=== PATIENT | female | born 1950 | race African-American/Black ===

== ENCOUNTER 2017-06-12 04:30 | Observation (INO) | payer MEDICARE, MEDICAID ==
[2017-06-12] MEDS ORDERED: methylPREDNISolone 125 MG* 2 ML VIAL IV ONE (04:44)
[2017-06-12] MEDS ORDERED: diPHENhydraMINE IV* 50 MG/ML 1 ml VIAL (BENADRYL) IV ONE (04:45)
[2017-06-12] MEDS ORDERED: Famotidine IV* 10 MG/ML 2 ML (20 mg) IV SLOW PU ONE (04:45)
[2017-06-12] MEDS ORDERED: EPINEPHrine AMP 1 MG/ML SUBCUT ONE (04:48)
[2017-06-12] MEDS ORDERED: EPINEPHRINE 1 MG/ML 1 ML VIAL ONE (04:54)
[2017-06-12] MEDS ORDERED: Famotidine IV* 10 MG/ML 2 ML (20 mg) ONE (04:54)
[2017-06-12] MEDS ORDERED: methylPREDNISolone 125 MG* 2 ML VIAL ONE (04:54)
[2017-06-12] MEDS ORDERED: diPHENhydraMINE IV* 50 MG/ML 1 ml VIAL (BENADRYL) ONE (04:54)
[2017-06-12 06:37] LABS: ABS Basophils 0 10^3/ul (0-0.2); ABS Eosinophils 0.1 10^3/ul (0-0.6); ABS Lymphocytes 3.1 10^3/ul (1.0-4.8); ABS Monocytes 0.5 10^3/ul (0-0.8); ABS Nucleated RBC 0 10^3/ul; Eosinophil % 1.6 % (0-6); Hematocrit 39 % (35-47); Hemoglobin 12.9 g/dl (12.0-16.0); Lymphocyte % 35.4 % (25-47); Mean Corpuscular HGB Conc 33 g/dl (31-36); Mean Corpuscular Hemoglobin 29 pg (27-31); Mean Corpuscular Volume 87 fL (80-97); Mean Platelet Volume 10.2 um3 (7.4-10.4); Nucleated Red Blood Cells % 0; Platelet Count 275 10^3/ul (150-450); Red Blood Count 4.52 10^6/ul (4.0-5.4); Red Cell Distribution Width 14 % (10.5-15); White Blood Count 8.9 10^3/ul (3.5-10.8)
[2017-06-12 06:48] LABS: INR 0.94 (0.77-1.02)
[2017-06-12 06:53] LABS: EGFR Non-African American 48.2 (>60)
[2017-06-12] MEDS ORDERED: Dextrose 50% Syringe 50 ML* 25 GM/50 ML SYRINGE IV PUSH PRN (09:53)
[2017-06-12] MEDS ORDERED: diPHENhydraMINE PO* 50 MG PO PRN (10:13)
[2017-06-12] MEDS ORDERED: Famotidine TAB* 20 MG PO ONE (10:14)
[2017-06-12] MEDS: Atorvastatin* 10 MG TAB PO SCH (10:53)
[2017-06-12] MEDS: Atenolol TAB* 50 MG PO SCH (10:53)
--- NOTE | 2017-06-12 12:04 | CONS ---
CONSULTATION REPORT: DATE OF CONSULTATION: 06/12/17 HISTORY OF PRESENT ILLNESS: This pleasant 66-year-old female with no prior history of angioedema, presented with sudden onset of increasing swelling of the floor of her mouth and tongue as well as her lower lip. Her story is that she had had a similar episode about 3 days ago, but much milder. She was at that time eating pumpkin seeds and no other sort of nuts, fruit or any other food that she had not been familiar with. She had also started glipizide for her diabetes. She denies any kind of stridor or sniff at this time. PHYSICAL EXAM: On examination, she did have some moderate amount of floor of mouth swelling. She had not had any dental caries. This apparently had reduced in size since institution of medication including H2 blockers, steroids , and adrenaline. A flexible endoscopy was performed through the left naris. There was some tongue base swelling, but there was no evidence of epiglottic swelling. Larynx itself was otherwise clear. IMPRESSION: Clinical impression: The patient with what sounds like new onset of angioedema, possibly related to glipizide, although it is uncommon. RECOMMENDATIONS: I think the patient should be admitted. I think at discharge the patient should probably have referral to Dr. Mason Terry for evaluation of angioedema. [id number]/[facility] #: [id number] [facility]ITALStefany
[2017-06-12] MEDS ORDERED: Acetaminophen TAB* 325 MG PO PRN (12:31)
[2017-06-12] MEDS ORDERED: Ketorolac INJ* 15 MG/ML 1 ML VIAL IV PUSH ONE (12:35)
[2017-06-12] MEDS: Insulin LISPRO* 1 UNITS UNIT SUBCUT SCH ×3 (12:37→23:10)
[2017-06-12] MEDS ORDERED: Magnesium Sulfate 2 GM IV* 2 GM/50 ML BAG IVPB ONE (13:19)
[2017-06-12] MEDS ORDERED: Potassium Chloride LIQUID* 20 MEQ PACKET PO ONE ×2 (14:00→16:00)
[2017-06-12] MEDS: Heparin VIAL(*) 5000 UNITS/ML VIAL (FIVE THOUSAND) SUBCUT SCH ×2 (14:08→23:11)
--- NOTE | 2017-06-12 14:56 | HP ---
Amended report to enter co-signature physician. CC: Dr. Rodgers* HISTORY AND PHYSICAL: DATE OF ADMISSION: 06/12/17 PROVIDER: Nazia Saldaña NP ATTENDING PHYSICIAN: Dr. Ware* (report dictated by Nazia Saldaña NP) PRIMARY CARE PROVIDER: Dr. Rodgers. CHIEF COMPLAINT: Acute facial and tongue swelling. HISTORY OF PRESENT ILLNESS: Ms. Terry is a 66-year-old female with a past medical history of fsa-ksgwnpg-ogxbizblk type 2 diabetes, hypertension, hyperlipidemia, who presented to the emergency department around 4 a.m. this morning with complaint of acute facial and tongue swelling. In the emergency department, she was given 0.3 mg of subcu epinephrine, Solu-Medrol 125 mg IV, and Pepcid for treatment of angioedema. The patient was seen in consultation by ENT, Dr. Davis, who performed a flexible endoscopy to the left naris and noted some tongue-based swelling with no evidence of epiglottic swelling and the larynx itself was otherwise clear. His clinical impression was new onset of angioedema. Per the patient, on my evaluation, she reports she stared a new medication glipizide approximately 2 weeks ago. She reports initially her symptoms started approximately 6 days ago on Wednesday when she developed left tonsillar pain, reporting it felt like a left-sided sore throat with rhinorrhea and a cough, a feeling like she was coming down with a cold. She reports feeling feverish intermittently on Wednesday and Wednesday; however, she did not take her temperature at home. She reports that her "fever" broke on Wednesday evening. She reported it felt like she had a cold with a left-sided sore throat, which did get better throughout the week. She then reports waking up in the middle of the night around 3 a.m. with difficulty swallowing, reporting that she was unable to swallow saliva and she was drooling saliva out of her mouth. She denied feeling short of breath, but her biggest complaint was inability to swallow with a tight sensation in her throat. She does report that she was eating pumpkin seeds last evening as well as she did drink a new herbal tea yesterday which she cannot remember the name of. She denies ever having any symptoms like this before in the past. She denies any allergies. Denies ever having any allergy testing. Currently, she reports that she feels much better since admission to the emergency department. She reports now she can swallow without difficulty; however, she does report a continued mild painful sensation in her left tonsillar area. She also continues to report that the left-side of her face has mild facial swelling, but again is much improved since admission. She denies chest pain, shortness of breath, or wheezing. She is currently now drinking fluids at the bedside stating it feels comfortable and without any difficulty. PAST MEDICAL HISTORY: 1. Yng-omjhlwq-pmmfogpdr type 2 diabetes. 2. Hypertension. 3. Hyperlipidemia. ALLERGIES: No known allergies. REVIEW OF SYSTEMS: A 14-point review of systems was performed, all the pertinent positives and negatives are mentioned in the history of present illness, otherwise negative. PHYSICAL EXAMINATION GENERAL APPEARANCE: A well-developed, 66-year-old female, sitting up in bed, alert and oriented x3, in no acute distress. Both sisters and daughter are at the bedside. VITAL SIGNS: Temperature 98.7, heart rate 75, respirations 16, O2 sat 99% on room air, and blood pressure 139/66. HEENT: Head is normocephalic and atraumatic. Pupils equal and reactive to light. Oropharynx: Tongue appears mildly edematous in the posterior aspect of her tongue, uvula is midline. Her soft and hard palate of her mouth appears to be without any edema. There is mild left facial edema noted spreading to the left lateral side of her neck. Left submandibular lymph node appears to be mildly tender, enlarged as well as her left cervical chain. Her lips appear to have no edema noted. The patient's speech is fluent and clear. Able to swallow normally without difficulty. LUNGS: Clear to auscultation bilaterally. Good aeration throughout. No wheezing, rhonchi, or rales noted. CARDIAC: S1 and S2. Regular rate and rhythm. No murmurs, rubs, or gallops appreciated. No lower extremity edema noted. ABDOMEN: Soft, nontender, and nondistended. Normal bowel sounds throughout. EXTREMITIES: No clubbing, cyanosis, or edema. NEURO: Alert and oriented x3. Cranial nerves II through XII grossly intact. Steady gait noted, no focal deficits noted. DIAGNOSTIC STUDIES/LAB DATA: WBC is 8.9, RBC 4.52, Hgb 12.9, Hct 39, MCV 87, MCH 29, MCHC 33, platelet count 275. INR 0.94. Sodium 142, potassium 3.1, chloride 106, carbon dioxide 28, anion gap 8, BUN 9, creatinine 1.13, glucose 120, calcium 8.8, magnesium 1.8. Total bilirubin 0.50, AST 17, ALT 24, alkaline phosphatase 79. Troponin 0.01. Total protein 6.9 and albumin 4.0. EKG: Normal sinus rhythm with a rate of 83, no acute ST changes noted. No prior EKG to compare. ASSESSMENT AND PLAN: Ms. Terry is a 66-year-old female with a past medical history of rjx-yumgyaz-zyqzcopvz type 2 diabetes, hypertension, hyperlipidemia, who presents today with acute onset of left facial, tongue, and neck swelling, suspected to be angioedema. 1. Angioedema. The patient has greatly improved since arrival to the emergency department. As stated in the HPI, she was treated with IV Solu-Medrol , epinephrine, Pepcid, and Benadryl. She continues to have some discomfort in her left lateral neck near her tonsil area, is eating and drinking well without any difficulties. Plan: Continue to monitor. She may be able to go home this evening. She will be continued on scheduled Benadryl, Pepcid. Unclear what the triggering factor was - possible Glipizide (she was on this for 7-14 days prior, new herbal tea, or pumpkins seeds?). On discharge, she will be discharged with an EpiPen as well as referral to Dr. Terry, emergency vehicle technician, for further workup. 2. Electrolytes abnormality. Give replacement for potassium and magnesium now. If she stays overnight, we will recheck labs in the morning. 3. Hypertension. Controlled, continue atenolol. 4. Hyperlipidemia. Continue Lipitor. 5. Hyf-kndauyw-sbhsscjdr type 2 diabetes. Plan to hold glipizide, metformin, FSBGs a.c. and h.s. with lispro sliding scale. 6. DVT prophylaxis. Heparin subcu. HOSPITAL STATUS: Observation. TIME SPENT: Approximately 60 minutes was spent on this admission. This case was discussed with Dr. Ware, attending physician, who agrees with the plan of care. NAZIA SALDAÑA, WATER TECHNICIAN [id number]/[facility] #: [id number] [facility] SYSTEMStefany
[2017-06-12] MEDS: diPHENhydraMINE PO* 50 MG PO SCH ×2 (17:09→23:10)
--- NOTE | 2017-06-13 01:12 | ED ---
Thang Regan Nilda, scribed for Nydia Sloan MD on 06/12/17 at 0601 . Allergic Reaction/Systemic - HPI Summary HPI Summary: This patient is a 66 year old F presenting to [facility] accompanied by family with a chief complaint of waking up with acute facial and tongue swelling minutes ago. The patient rates the pain 6/10 in severity. Symptoms aggravated and alleviated by nothing. Patient denies pruritic rashes or hives. NKDA except for aversion to Tylenol (causes LOO). Pt notes she ate pumpkin seeds last night. She is unsure what caused the swelling. She states recent medication change, per triage note. - History of Current Complaint Chief Complaint: EDAllergicReaction Time Seen by Provider: 06/12/17 04:52 Hx Obtained From: Patient, Medical Records Onset/Duration: Sudden Onset, Started minutes ago, Still Present Timing: Constant Severity Currently: Moderate Pain Intensity: 6 Pain Scale Used: 0-10 Numeric Location: Discrete @ - face and tongue Character: Swelling, Pain Aggravating Factor(s): Nothing Alleviating Factor(s): Nothing Associated Signs And Symptoms: Positive: Other: - negative pruritic rashes/hives - Allergies/Home Medications Allergies/Adverse Reactions: Allergies Allergy/AdvReac Type Severity Reaction Status Date / Time No Known Allergies Allergy Verified 11/13/16 13:01 Home Medications: Home Medications Atenolol TAB* [Tenormin TAB* 50 MG] 50 mg PO DAILY 06/12/17 [History Confirmed 06/12/17] Atorvastatin* [Lipitor*] 5 mg PO DAILY 06/12/17 [History Confirmed 06/12/17] Metformin HCl [Metformin HCl ER] 500 mg PO BID 06/12/17 [History Confirmed 06/12] glipiZIDE [Glipizide ER] 2.5 mg PO DAILY 06/12/17 [History Confirmed 06/12/17] PMH/Surg Hx/FS Hx/Imm Hx Endocrine/Hematology History: Reports: Hx Diabetes Cardiovascular History: Reports: Hx Hypertension Respiratory History: Denies: Hx Asthma, Hx Chronic Obstructive Pulmonary Disease (COPD) Sensory History: Denies: Hx Legally Blind EENT History: Denies: Hx Deafness - Cancer History Hx Chemotherapy: No Hx Radiation Therapy: No - Immunization History Immunizations Up to Date: Yes Infectious Disease History: No Infectious Disease History: Denies: Traveled Outside the [place] in Last 30 Days - Social History Alcohol Use: None Substance Use Type: Reports: None Smoking Status (MU): Never Smoked Tobacco Review of Systems Negative: Shortness Of Breath Positive: Other - facial and tongue swelling; negative pruritic rashes or hives. All Other Systems Reviewed And Are Negative: Yes Physical Exam - Summary Physical Exam Summary: GENERAL: Patient is a well developed and nourished F who is lying comfortable in the stretcher. Patient is not in any acute respiratory distress. HEAD AND FACE: Tongue swollen, lips swollen. EYES: PERRLA, EOMI x 2. EARS: Hearing grossly intact. MOUTH: Uvula not visible. NECK: Supple, trachea is midline, no adenopathy, no JVD, no carotid bruit. CHEST: Symmetric, no tenderness at palpation LUNGS: Clear to auscultation bilaterally. No wheezing or crackles. CVS: Regular rate and rhythm, S1 and S2 present, no murmurs or gallops appreciated. ABDOMEN: Soft, non-tender. Bowel sounds are normal. No abdominal abnormal pulsations. EXTREMITIES: Full ROM in all major joints, no edema, no cyanosis or clubbing. NEURO: Alert and oriented x 3. No acute neurological deficits. Speech is normal and follows commands. SKIN: Dry and warm Triage Information Reviewed: Yes Vital Signs On Initial Exam: Initial Vitals Temp Pulse Resp BP Pulse Ox 98.6 F 81 16 188/87 97 06/12/17 04:32 06/12/17 04:32 06/12/17 04:32 06/12/17 04:32 06/12/17 04:32 Vital Signs Reviewed: Yes Diagnostics - Vital Signs Vital Signs Temp Pulse Resp BP Pulse Ox 06/12/17 05:00 104 23 99 06/12/17 04:44 87 18 201/98 99 06/12/17 04:42 89 99 06/12/17 04:32 98.6 F 81 16 188/87 97 - Laboratory Lab Results: Lab Results 06/12/17 06/12/17 06/12/17 Range/Units 04:41 04:41 04:41 WBC 8.9 (3.5-10.8) 10^3/ul RBC 4.52 (4.0-5.4) 10^6/ul Hgb 12.9 (12.0-16.0) g/dl Hct 39 (35-47) % MCV 87 (80-97) fL MCH 29 (27-31) pg MCHC 33 (31-36) g/dl RDW 14 (10.5-15) % Plt Count 275 (150-450) 10^3/ul MPV 10.2 (7.4-10.4) um3 Neut % (Auto) 56.6 (38-83) % Lymph % (Auto) 35.4 (25-47) % Morehouse % (Auto) 6.0 (0-7) % Eos % (Auto) 1.6 (0-6) % Baso % (Auto) 0.4 (0-2) % Absolute Neuts (auto) 5.0 (1.5-7.7) 10^3/ul Absolute Lymphs (auto) 3.1 (1.0-4.8) 10^3/ul Absolute Monos (auto) 0.5 (0-0.8) 10^3/ul Absolute Eos (auto) 0.1 (0-0.6) 10^3/ul Absolute Basos (auto) 0 (0-0.2) 10^3/ul Absolute Nucleated RBC 0 10^3/ul Nucleated RBC % 0 INR (Anticoag Therapy) 0.94 (0.77-1.02) APTT 30.2 (26.0-36.3) seconds Sodium 142 (139-145) mmol/L Potassium 3.1 L (3.5-5.0) mmol/L Chloride 106 (101-111) mmol/L Carbon Dioxide 28 (22-32) mmol/L Anion Gap 8 (2-11) mmol/L BUN 9 (6-24) mg/dL Creatinine 1.13 H (0.51-0.95) mg/dL Est GFR ( Amer) 62.0 (>60) Est GFR (Non-Af Amer) 48.2 (>60) BUN/Creatinine Ratio 8.0 (8-20) Glucose 120 H (70-100) mg/dL Calcium 8.8 (8.6-10.3) mg/dL Magnesium 1.8 L (1.9-2.7) mg/dL Total Bilirubin 0.50 (0.2-1.0) mg/dL AST 17 (13-39) U/L ALT 24 (7-52) U/L Alkaline Phosphatase 79 (34-104) U/L Troponin I 0.01 (<0.04) ng/mL Total Protein 6.9 (6.4-8.9) g/dL Albumin 4.0 (3.2-5.2) g/dL Globulin 2.9 (2-4) g/dL Albumin/Globulin Ratio 1.4 (1-3) Blood Type Antibody Screen 06/12/17 Range/Units 04:41 WBC (3.5-10.8) 10^3/ul RBC (4.0-5.4) 10^6/ul Hgb (12.0-16.0) g/dl Hct (35-47) % MCV (80-97) fL MCH (27-31) pg MCHC (31-36) g/dl RDW (10.5-15) % Plt Count (150-450) 10^3/ul MPV (7.4-10.4) um3 Neut % (Auto) (38-83) % Lymph % (Auto) (25-47) % Morehouse % (Auto) (0-7) % Eos % (Auto) (0-6) % Baso % (Auto) (0-2) % Absolute Neuts (auto) (1.5-7.7) 10^3/ul Absolute Lymphs (auto) (1.0-4.8) 10^3/ul Absolute Monos (auto) (0-0.8) 10^3/ul Absolute Eos (auto) (0-0.6) 10^3/ul Absolute Basos (auto) (0-0.2) 10^3/ul Absolute Nucleated RBC 10^3/ul Nucleated RBC % INR (Anticoag Therapy) (0.77-1.02) APTT (26.0-36.3) seconds Sodium (139-145) mmol/L Potassium (3.5-5.0) mmol/L Chloride (101-111) mmol/L Carbon Dioxide (22-32) mmol/L Anion Gap (2-11) mmol/L BUN (6-24) mg/dL Creatinine (0.51-0.95) mg/dL Est GFR ( Amer) (>60) Est GFR (Non-Af Amer) (>60) BUN/Creatinine Ratio (8-20) Glucose (70-100) mg/dL Calcium (8.6-10.3) mg/dL Magnesium (1.9-2.7) mg/dL Total Bilirubin (0.2-1.0) mg/dL AST (13-39) U/L ALT (7-52) U/L Alkaline Phosphatase (34-104) U/L Troponin I (<0.04) ng/mL Total Protein (6.4-8.9) g/dL Albumin (3.2-5.2) g/dL Globulin (2-4) g/dL Albumin/Globulin Ratio (1-3) Blood Type A Positive Antibody Screen Negative Result Diagrams: 06/12/17 04:41 06/12/17 04:41 Lab Statement: Any lab studies that have been ordered have been reviewed, and results considered in the medical decision making process. Allergic Reaction Course/Dx - Course Course Of Treatment: 66 year old female presenting to the ED with an acute onset of swelling of the lip and tongue and difficulty breathing. Patient was treated with epi, benadryl, steroid and famotidine for angioedema. Patient was seen and evaluated at the bedside by ENT. Patient reports feeling better but will be admitted for airway watch Assessment/Plan: [0540] Dr. oNlen (hospitalist) agrees to admit pt. - Diagnoses Differential Diagnosis/HQI/PQRI: Positive: Angioedema Provider Diagnoses: Angio-edema - Provider Notifications Discussed Care Of Patient With: Skyler Davis - ENT Time Discussed With Above Provider: 05:51 Instructed by Provider To: Will See In ED - agrees to scope. - Critical Care Time Critical Care Time: 30-74 min Discharge - Sign-Out/Discharge Documenting (check all that apply): Discharge - Discharge Plan Condition: Stable Disposition: ADMITTED TO [facility] - Billing Disposition and Condition Condition: STABLE Disposition: [facility] The documentation as recorded by the Thang batista Nilda accurately reflects the service I personally performed and the decisions made by , Nydia Sloan MD.
[2017-06-13] MEDS: diPHENhydraMINE PO* 50 MG PO SCH ×2 (05:12→12:27)
[2017-06-13] MEDS: Heparin VIAL(*) 5000 UNITS/ML VIAL (FIVE THOUSAND) SUBCUT SCH (05:13)
[2017-06-13 06:05] LABS: ABS Basophils 0 10^3/ul (0-0.2); ABS Eosinophils 0 10^3/ul (0-0.6); ABS Lymphocytes 2.9 10^3/ul (1.0-4.8); ABS Monocytes 1.4 10^3/ul (0-0.8); ABS Neutrophils 11.5 10^3/ul (1.5-7.7); ABS Nucleated RBC 0 10^3/ul; Eosinophil % 0.1 % (0-6); Hematocrit 35 % (35-47); Lymphocyte % 18.3 % (25-47); Mean Corpuscular HGB Conc 32 g/dl (31-36); Mean Corpuscular Hemoglobin 28 pg (27-31); Mean Corpuscular Volume 87 fL (80-97); Mean Platelet Volume 9.6 um3 (7.4-10.4); Nucleated Red Blood Cells % 0; Platelet Count 232 10^3/ul (150-450); Red Blood Count 3.98 10^6/ul (4.0-5.4); Red Cell Distribution Width 14 % (10.5-15); White Blood Count 15.8 10^3/ul (3.5-10.8)
[2017-06-13] MEDS: Atenolol TAB* 50 MG PO SCH (08:53)
[2017-06-13] MEDS ORDERED: Famotidine TAB* 20 MG PO SCH (09:00)
[2017-06-13] MEDS ORDERED: Atenolol TAB* 50 MG PO SCH (09:03)
[2017-06-13] MEDS: Insulin LISPRO* 1 UNITS UNIT SUBCUT SCH ×2 (09:11→12:27)
[2017-06-13] MEDS: Atorvastatin* 10 MG TAB PO SCH (09:12)
--- NOTE | 2017-06-13 11:39 | PN ---
Subjective Date of Service: 06/13/17 Interval History: Patient seen and examined at bedside. Denies fever, chills, shortness of breath , chest discomfort, N/V/D or urinary symptoms. Pt states that the facial and neck swelling have improved, but not completely resolved. Family History: Unchanged from Admission Social History: Unchanged from Admission Past Medical History: Unchanged from Admission Objective Active Medications: Atenolol (Tenormin Tab*) 50 mg PO DAILY [facility] Atorvastatin Calcium (Lipitor*) 5 mg PO DAILY [facility] Dextrose (D50w Syringe 50 Ml*) 12.5 gm IV PUSH .FOR FS < 60 - SS PRN Reason: FS < 60 Diphenhydramine HCl (Benadryl Po*) 50 mg PO Q6H [facility] Famotidine (Pepcid Tab*) 20 mg PO DAILY [facility] Heparin Sodium (Porcine) (Heparin Vial(*)) 5,000 units SUBCUT Q8HR [facility] Insulin Human Lispro (Humalog*) 0 units SUBCUT ACHS [facility] Vital Signs - 8 hr 06/13/17 06/13/17 06/13/17 03:50 05:12 07:45 Temperature 98.4 F 98.1 F Pulse Rate 55 51 Respiratory 18 16 16 Rate Blood Pressure 135/63 133/63 (mmHg) O2 Sat by Pulse 98 98 Oximetry 06/13/17 06/13/17 08:00 09:11 Temperature Pulse Rate Respiratory 14 14 Rate Blood Pressure (mmHg) O2 Sat by Pulse Oximetry Oxygen Devices in Use Now: None Appearance: NAD, sitting up in bed Ears/Nose/Mouth/Throat: Mucous Membranes Moist Neck: - - Mild left face and neck swelling Respiratory: Symmetrical Chest Expansion and Respiratory Effort, Clear to Auscultation Cardiovascular: NL Sounds; No Murmurs; No JVD, RRR Abdominal: NL Sounds; No Tenderness; No Distention Neurological: Alert and Oriented x 3, NL Muscle Strength and Tone Lines/Tubes/Other Access: Clean, Dry and Intact Peripheral IV - site benign Nutrition: Taking PO's Result Diagrams: 06/13/17 05:48 06/13/17 05:48 Additional Lab and Data: Assess/Plan/Problems-Billing Assessment: Ms. Terry is a 66 yo female with PMH significant for DM, HTN, and HLD who presented to the emergency room with acute onset of left facial, tongue and neck edema. - Patient Problems (1) Angioedema Code(s): T78.3XXA - ANGIONEUROTIC EDEMA, INITIAL ENCOUNTER SNOMED Code(s): 42947902 Comment: - Unclear etiology, possible triggers include Glipizide, new herbal tea or pumpkin seeds - Continue Pepcid and Benadryl PRN (2) Electrolyte abnormality Code(s): E87.8 - OTH DISORDERS OF ELECTROLYTE AND FLUID BALANCE, NEC SNOMED Code(s): 494960053 Comment: - Hypokalemia - Resolved after replacement - Hypomagnesemia - Resolved after replacement (3) Leukocytosis Code(s): D72.829 - ELEVATED WHITE BLOOD CELL COUNT, UNSPECIFIED SNOMED Code(s) : 690452148 Comment: - Afebrile, denies signs of urinary symptoms - Suspect secondary to steroids (4) Elevated serum creatinine Code(s): R79.89 - OTHER SPECIFIED ABNORMAL FINDINGS OF BLOOD CHEMISTRY SNOMED Code(s): 693903711 Comment: - Unknown baseline - Improved with hydration (5) HTN (hypertension) Code(s): I10 - ESSENTIAL (PRIMARY) HYPERTENSION SNOMED Code(s): 80191218 Comment: - SBP 130-160's - Continue atenolol (6) HLD (hyperlipidemia) Code(s): E78.5 - HYPERLIPIDEMIA, UNSPECIFIED SNOMED Code(s): 95053226 Comment: - Continue lipitor (7) Diabetes Code(s): E11.9 - TYPE 2 DIABETES MELLITUS WITHOUT COMPLICATIONS SNOMED Code(s) : 71659963 Comment: - Glucose 190-270's - Resume Metformin at discharge - Continue to hold Glipizide (8) DVT prophylaxis Code(s): UZI3381 - SNOMED Code(s): 440270523 Comment: - SQ heaprin (9) Full code status Code(s): Z78.9 - OTHER SPECIFIED HEALTH STATUS SNOMED Code(s): 061563373 Status and Disposition: OBV. Stable for discharge to home today.
[2017-06-13 13:03] VITALS: BP 141/66
[2017-06-13] MEDS ORDERED: Potassium Chloride LIQUID* 20 MEQ PACKET PO ONE (14:00)
--- NOTE | 2017-06-14 00:13 | DS ---
CC: Dr. Obdulio Rodgers* DISCHARGE SUMMARY: DATE OF ADMISSION: 06/12/17 DATE OF DISCHARGE: 06/13/17 ATTENDING PHYSICIAN: Dr. Sherlyn Gastelum* (dictated by Rubio Venegas NP). PRIMARY CARE PROVIDER: Dr. Obdulio Rodgers. PRIMARY DIAGNOSIS: Angioedema. SECONDARY DIAGNOSES: 1. Ujz-dtkpaaj-pwvlwkbpn type 2 diabetes mellitus. 2. Hypertension. 3. Hyperlipidemia. STUDIES WHILE IN THE HOSPITAL: None. DISCHARGE MEDICATIONS: New home medications: 1. EpiPen 0.3 mg IM once as needed for allergy symptoms, anaphylaxis. 2. Pepcid 20 mg oral daily for 4 days. 3. Benadryl 50 mg oral every 6 hours as needed for allergy symptoms. Changed home medication: Metformin increased from 500 mg twice daily to 1000 mg twice daily. Discontinued home medication: Glipizide. Continued medications: 1. Vitamin D 1000 units oral monthly. 2. Atenolol 50 mg oral daily. 3. Atorvastatin 5 mg oral daily. HISTORY OF PRESENT ILLNESS/HOSPITAL COURSE: Ms. Terry is a 66-year-old female with past medical history significant for vmc-iqbxiio-zskfrszhb diabetes mellitus, hypertension, hyperlipidemia, who presented to the emergency room with complaints of acute facial and tongue swelling, it was sudden onset. The patient reports starting glipizide approximately 2 weeks ago. The patient reports initially her symptoms started approximately 6 days prior when she developed left tonsillar pain feeling like the left side of her throat was sore with rhinorrhea and a cough. She felt like she was coming down with a cold. She also felt feverish on Wednesday and Wednesday, but did not take her temperature at home. The fever broke on Wednesday evening, she felt as though the cold symptoms were getting better throughout the week. She woke up with difficulty swallowing, was unable to swallow her own saliva and was drooling. She denied any shortness of breath and had a tight sensation in her throat. She also reported eating pumpkin seeds the night prior as well as drinking a new herbal tea, but she could not recall the name of that. Due to her symptoms , she presented to the emergency room for further evaluation of her symptoms. While in the emergency room, she was given 0.3 mg of subcu epinephrine, Solu- Medrol 125 mg IV in addition to Pepcid for the treatment of her angioedema. She was seen in consultation by Dr. Davis with ENT, who performed a flexible endoscopy of the left naris and noted some tongue based swelling with no evidence of epiglottic swelling or swelling of the larynx itself. He felt this was a new onset angioedema and the Hospitalists were asked to evaluate the patient for admission. While in the hospital, the patient's facial and tongue swelling improved, but did not fully resolve. She was treated with Pepcid and around the clock Benadryl, she was doing well. She was noted to have mild elevation of her white blood cell count. This was felt to be secondary to the steroid she had received. She had no signs of infection. Ms. Terry is stable for discharge to home today. Vital signs are as follows: Temperature 97.7, heart rate 52, respiratory rate 20, O2 sat 96% on room air, blood pressure 141/61. DISCHARGE PLAN: Ms. Terry will be discharged to home. ACTIVITY: As tolerated. DIET: She should be on a consistent carbohydrate diet. In regards to her angioedema, she has been continued on Benadryl every 6 hours as needed for allergy symptoms and Pepcid for 4 more days. She has also been prescribed an EpiPen. She has been asked to call either [facility] or [facility] in [place] to set up followup appointments for allergy testing. She has been provided with numbers for both offices. In regards to her diabetes, it is unclear if this was secondary to her recent starting of glipizide, I have held her glipizide and increased her metformin to 1000 mg oral twice daily. She has been resume on her other usual home medications. I would considering not starting the patient on an HOWARD inhibitor going forward with her history of angioedema. The patient has been asked to return to the emergency room for any chest pain, shortness of breath, increase in swelling of her face or throat. This is a summarized report of a complex medical history and hospital stay. For further details, please see the entire medical record. TIME SPENT: Time for this discharge was approximately 50 minutes, greater than half of that was spent with the patient and her family discussing discharge plans and instructions. CONDITION ON DISCHARGE: Stable. RUBIO VENEGAS, HYDRO OPERATOR [id number]/[facility] #: [id number] [place]
== END 2017-06-13 14:00 | disposition home or self-care (01) ==
LOC: ED 04:30 → MED 07:07
PROVIDERS: ADMIT Internal Medicine; ATTEND Hospitalist
DX: T78.3XXA Angioneurotic edema, initial encounter (principal); X58.XXXA Exposure to other specified factors, initial encounter; I10 Essential (primary) hypertension; E87.8 Other disorders of electrolyte and fluid balance, not elsewhere classified; E78.5 Hyperlipidemia, unspecified; R79.89 Other specified abnormal findings of blood chemistry; E11.9 Type 2 diabetes mellitus without complications; D72.829 Elevated white blood cell count, unspecified; Z79.899 Other long term (current) drug therapy
CPT/HCPCS: 36415; 80048; 80053; 82947; 83036; 83735; 84484; 85025; 85610; 85730; 86850; 86900; 86901; 93005; 96365; 96372; 96375; 99291; A9270-GY; G0378; J0171; J1200; J1644; J2930; J3475

== ENCOUNTER 2019-06-22 14:04 | Emergency (ER) | payer MEDICARE ==
[2019-06-22 15:44] LABS: ABS Eosinophils 0.1 10^3/ul (0-0.6); ABS Lymphocytes 2.2 10^3/ul (1.0-4.8); ABS Monocytes 0.8 10^3/ul (0-0.8); Eosinophil % 1.4 %; Hematocrit 37 % (35-47); Hemoglobin 12.6 g/dL (12.0-16.0); Lymphocyte % 27.3 %; Mean Corpuscular HGB Conc 34 g/dL (31-36); Mean Corpuscular Hemoglobin 29 pg (27-31); Mean Corpuscular Volume 84 fL (80-97); Mean Platelet Volume 9.4 fL (7.4-10.4); Platelet Count 272 10^3/uL (150-450); Red Blood Count 4.43 10^6 /uL (3.70-4.87); Red Cell Distribution Width 14 % (10-15); White Blood Count 8.2 10^3/uL (3.5-10.8)
[2019-06-22 16:18] LABS: Albumin 4.1 g/dL (3.2-5.2); Albumin/Globulin Ratio 1.2 (1-3); BUN/Creatinine Ratio 9.6 (8-20); Calcium 9.3 mg/dL (8.6-10.3); EGFR African American 56.8 (>60); EGFR Non-African American 46.9 (>60); Globulin 3.3 g/dL (2-4); Indirect Bilirubin 0.5 mg/dL (0.3-1.0); Potassium 3.6 mmol/L (3.5-5.0); Total Bilirubin 0.7 mg/dL (0.2-1.0); Total Protein 7.4 g/dL (6.4-8.9)
[2019-06-22] MEDS ORDERED: Iodixanol (CONTRAST) 320 MG/ML 100 ML SDV IV ONE (17:12)
[2019-06-22] MEDS ORDERED: Labetalol IV 5 MG/ML 20 ml VIAL IV PUSH ONE (17:18)
[2019-06-22] MEDS ORDERED: Lactated Ringers 1000 ml BAG 1,000 ML IV ONE (17:18)
[2019-06-22 17:32] LABS: Troponin I 0.01 ng/mL (<0.03)
[2019-06-22 18:26] LABS: INR 1.17 (0.82-1.09)
[2019-06-22 19:47] VITALS: BP 196/110
== END 2019-06-22 19:45 | disposition home or self-care (01) ==
LOC: ED 14:04

== ENCOUNTER 2019-07-04 20:59 | Inpatient (IN) ==
[2019-07-04] MEDS ORDERED: NS 0.9% 1000 ml BAG 1,000 ML IV ONE (21:38)
[2019-07-04] MEDS ORDERED: Ondansetron 4 mg VIAL 2 MG/ML 2 ml VIAL IV ONE (21:52)
[2019-07-04 22:39] LABS: ABS Lymphocytes 1.3 10^3/ul (1.0-4.8); Hematocrit 40 % (35-47); Lymphocyte % 10.4 %; Mean Corpuscular HGB Conc 33 g/dL (31-36); Mean Corpuscular Hemoglobin 27 pg (27-31); Mean Corpuscular Volume 83 fL (80-97); Mean Platelet Volume 9.4 fL (7.4-10.4); Platelet Count 389 10^3/uL (150-450); Red Blood Count 4.78 10^6 /uL (3.70-4.87); Red Cell Distribution Width 14 % (10-15); White Blood Count 12.4 10^3/uL (3.5-10.8)
[2019-07-04 22:54] LABS: Albumin 4.2 g/dL (3.2-5.2); Albumin/Globulin Ratio 1.2 (1-3); BUN/Creatinine Ratio 13.8 (8-20); C Reactive Protein 94.99 mg/L (<8.01); Calcium 9.7 mg/dL (8.6-10.3); EGFR African American 56.2 (>60); EGFR Non-African American 46.5 (>60); Globulin 3.5 g/dL (2-4); Potassium 3.1 mmol/L (3.5-5.0); Total Bilirubin 0.9 mg/dL (0.2-1.0); Total Protein 7.7 g/dL (6.4-8.9)
[2019-07-04 22:56] LABS: Activated Partial Thrombo Time 26.1 seconds (26.0-38.0); INR 1.31 (0.82-1.09)
[2019-07-04] MEDS ORDERED: Iodixanol (CONTRAST) 320 MG/ML 100 ML SDV IV ONE (23:07)
[2019-07-04] MEDS: KCL 20 MEQ/100 ML IVPREMIX 20 MEQ/100 ML BAG IV SCH (23:45)
[2019-07-04 23:46] LABS: Magnesium 2.2 mg/dL (1.9-2.7)
[2019-07-05] MEDS ORDERED: NS 0.9% 1000 ml BAG 1,000 ML IV ONE (00:29)
[2019-07-05] MEDS ORDERED: Piperacillin/Tazobac ADVAN(*) 3.375 GM in NS 0.9% 100 ml BAG 100 ML IVPB ONE (00:29)
[2019-07-05 01:12] LABS: Urine Appearance Cloudy; Urine Bilirubin Negative (Negative); Urine Blood Negative (Negative); Urine Color Yellow; Urine Glucose Negative (Negative); Urine Ketones 1+ (Negative); Urine Nitrite Negative (Negative); Urine Protein 1+(30 mg/dL) (Negative); Urine Specific Gravity 1.043 (1.010-1.030); Urine Urobilinogen Negative (Negative)
[2019-07-05 01:24] LABS: Urine Bacteria 1+ (Absent); Urine Red Blood Cell 2+(6-10/hpf) (Absent); Urine Squamous Epithelial Cell Present (Absent); Urine White Blood Cell 2+(11-20/hpf) (Absent)
[2019-07-05 02:26] LABS: Troponin I 0.01 ng/mL (<0.03)
[2019-07-05] MEDS ORDERED: Ondansetron 4 mg VIAL 2 MG/ML 2 ml VIAL IV PRN (02:37)
[2019-07-05] MEDS ORDERED: Prochlorperazine 5 mg/ml 2 ml VIAL (10 mg) IV PRN (02:37)
[2019-07-05] MEDS ORDERED: Dextrose 50% Syringe 50 ml 25 GM/50 ML SYRINGE IV PUSH PRN (02:43)
[2019-07-05] MEDS ORDERED: Zosyn per Pharmacy NOTE FOLLOW UP SCH (03:00)
[2019-07-05] MEDS ORDERED: hydrALAZINE 20 mg/ml 1 ML Vial IV IV SLOW PU PRN (03:26)
[2019-07-05] MEDS: NS 0.9% 1000 ml BAG 1,000 ML IV SCH ×2 (04:02→16:29)
[2019-07-05] MEDS: Metoprolol Tartrate 5 mg VIAL 5 ml VIAL (1 mg/ml) IV SCH ×3 (04:05→16:29)
[2019-07-05] MEDS: KCL 20 MEQ/100 ML IVPREMIX 20 MEQ/100 ML BAG IV SCH (04:29)
[2019-07-05] MEDS: Heparin 5000 UNITS/ML 1 mL VIAL SUBCUT SCH ×3 (05:22→12:44)
[2019-07-05] MEDS: ZOSYN 3.375 GM Q8H per EXTENDED INFUSION IV SCH ×2 (07:12→12:36)
[2019-07-05] MEDS ORDERED: Morphine 4 MG/ML VIAL (1 ml) IV PRN (10:23)
[2019-07-05] MEDS ORDERED: Morphine 2 MG/ML SYRINGE IV PRN (10:24)
[2019-07-05 13:38] LABS: BUN/Creatinine Ratio 16.7 (8-20); Calcium 8.4 mg/dL (8.6-10.3); EGFR African American 69.9 (>60); EGFR Non-African American 57.8 (>60); Potassium 2.8 mmol/L (3.5-5.0)
[2019-07-05] MEDS ORDERED: KCL 20 MEQ/100 ML IVPREMIX 20 MEQ/100 ML BAG IV SCH (15:00)
[2019-07-05 19:28] VITALS: BP 186/90
== END 2019-07-05 18:00 | disposition short-term general hospital (02) | DRG 388 ==
LOC: ED 20:59 → SSU 07-05 03:30 → MED 07-05 09:57
PROVIDERS: ADMIT Hospitalist; ATTEND Internal Medicine

== ENCOUNTER 2022-01-22 14:40 | Inpatient (IN) ==
[2022-01-22 14:55] LABS: Urine Appearance Cloudy; Urine Bilirubin Negative (Negative); Urine Blood 1+ (Negative); Urine Color Yellow; Urine Glucose 1+(50 mg/dL) (Negative); Urine Ketones Negative (Negative); Urine Nitrite Negative (Negative); Urine Protein 3+(>=500 mg/dL) (Negative); Urine Specific Gravity 1.013 (1.002-1.030); Urine Urobilinogen Negative (Negative)
[2022-01-22 15:00] LABS: Urine Amorphous Crystals Present (Absent); Urine Bacteria Absent (Absent); Urine Red Blood Cell 1+(3-5/hpf) (Absent); Urine Squamous Epithelial Cell Present (Absent); Urine White Blood Cell Trace(0-5/hpf) (Absent)
[2022-01-22 15:24] LABS: Calcium 7.8 mg/dL (8.6-10.3); Potassium 5.4 mmol/L (3.5-5.0)
[2022-01-22 15:29] LABS: eGFR CKD-EPI 20.4 (>60)
[2022-01-22] MEDS ORDERED: Ondansetron ODT 4 mg TAB 4 MG TAB PO PRN (16:57)
[2022-01-22] MEDS ORDERED: Metformin ER 500 mg TAB (NF) PO SCH (17:00)
[2022-01-22] MEDS ORDERED: Labetalol IV 5 MG/ML 20 ml VIAL IV PUSH PRN (18:35)
[2022-01-22] MEDS: Labetalol IV 5 MG/ML 20 ml VIAL IV PUSH PRN (18:58)
[2022-01-22] MEDS: Enoxaparin 30 MG/0.3 ML SYR SUBCUT SCH (18:58)
[2022-01-22] MEDS: NS 0.9% 1000 ml BAG 1,000 ML IV SCH (22:05)
[2022-01-23 05:32] LABS: Hematocrit 27 % (35-47); Hemoglobin 8.6 g/dL (12.0-16.0); Mean Corpuscular HGB Conc 32 g/dL (31-36); Mean Corpuscular Hemoglobin 29 pg (27-31); Mean Corpuscular Volume 90 fL (80-97); Mean Platelet Volume 8.1 fL (7.4-10.4); Platelet Count 160 10^3/uL (150-450); Red Blood Count 2.97 10^6 /uL (3.70-4.87); Red Cell Distribution Width 17 % (10-15); White Blood Count 4.5 10^3/uL (3.5-10.8)
[2022-01-23 06:03] LABS: Albumin 2.3 g/dL (3.2-5.2); Albumin/Globulin Ratio 1.4 (1-3); Calcium 7.3 mg/dL (8.6-10.3); Globulin 1.6 g/dL (2-4); Potassium 4.5 mmol/L (3.5-5.0); Total Bilirubin 0.4 mg/dL (0.2-1.0); Total Protein 3.9 g/dL (6.4-8.9); eGFR CKD-EPI 22.8 (>60)
[2022-01-23 06:56] LABS: ABS Basophils 0.1 10^3/ul (0-0.2); ABS Eosinophils 0.1 10^3/ul (0-0.6); ABS Lymphocytes 2.1 10^3/ul (1.0-4.8); ABS Monocytes 0.8 10^3/ul (0-0.8); ABS Neutrophils 1.5 10^3/ul (1.5-7.7); Eosinophil % 3.2 %; Nucleated Red Blood Cells % 0.1
[2022-01-23 06:59] LABS: Anisocytosis 2+; Schistocytes 1+
[2022-01-23] MEDS: NS 0.9% 1000 ml BAG 1,000 ML IV SCH ×2 (10:21→21:23)
[2022-01-23] MEDS: Enoxaparin 30 MG/0.3 ML SYR SUBCUT SCH (17:47)
[2022-01-24 06:28] LABS: Hematocrit 25 % (35-47); Mean Corpuscular HGB Conc 33 g/dL (31-36); Mean Corpuscular Hemoglobin 29 pg (27-31); Mean Corpuscular Volume 90 fL (80-97); Mean Platelet Volume 7.6 fL (7.4-10.4); Platelet Count 182 10^3/uL (150-450); Red Blood Count 2.76 10^6 /uL (3.70-4.87); Red Cell Distribution Width 16 % (10-15); White Blood Count 4.6 10^3/uL (3.5-10.8)
[2022-01-24 06:36] LABS: ABS Basophils 0.1 10^3/ul (0-0.2); ABS Eosinophils 0.1 10^3/ul (0-0.6); ABS Lymphocytes 2.2 10^3/ul (1.0-4.8); ABS Monocytes 0.9 10^3/ul (0-0.8); ABS Neutrophils 1.3 10^3/ul (1.5-7.7); Eosinophil % 3.1 %; Lymphocyte % 47.7 %; Nucleated Red Blood Cells % 0.2
[2022-01-24 07:17] LABS: Calcium 7.2 mg/dL (8.6-10.3); Magnesium 1.8 mg/dL (1.9-2.7); eGFR CKD-EPI 25.8 (>60)
[2022-01-24] MEDS ORDERED: Magnesium Sulfate 2 gm BAG 2 GM/50 ML BAG IVPB ONE (16:27)
[2022-01-24] MEDS: Enoxaparin 30 MG/0.3 ML SYR SUBCUT SCH (16:57)
[2022-01-25] MEDS: Labetalol IV 5 MG/ML 20 ml VIAL IV PUSH PRN (04:19)
[2022-01-25 05:38] LABS: Hematocrit 27 % (35-47); Hemoglobin 8.8 g/dL (12.0-16.0); Mean Corpuscular HGB Conc 32 g/dL (31-36); Mean Corpuscular Hemoglobin 29 pg (27-31); Mean Corpuscular Volume 90 fL (80-97); Mean Platelet Volume 8.7 fL (7.4-10.4); Platelet Count 234 10^3/uL (150-450); Red Blood Count 3.05 10^6 /uL (3.70-4.87); Red Cell Distribution Width 17 % (10-15); White Blood Count 4.5 10^3/uL (3.5-10.8)
[2022-01-25 06:24] LABS: Calcium 7.3 mg/dL (8.6-10.3); Magnesium 2.3 mg/dL (1.9-2.7); Potassium 3.8 mmol/L (3.5-5.0); eGFR CKD-EPI 26.7 (>60)
[2022-01-25 07:00] LABS: ABS Eosinophils 0.1 10^3/ul (0-0.6); ABS Lymphocytes 2.1 10^3/ul (1.0-4.8); ABS Monocytes 0.9 10^3/ul (0-0.8); ABS Neutrophils 1.5 10^3/ul (1.5-7.7); Eosinophil % 2.4 %; Lymphocyte % 45.7 %; Nucleated Red Blood Cells % 0.2
[2022-01-25] MEDS: Enoxaparin 30 MG/0.3 ML SYR SUBCUT SCH (16:48)
[2022-01-26 05:48] LABS: Hematocrit 26 % (35-47); Hemoglobin 8.2 g/dL (12.0-16.0); Mean Corpuscular HGB Conc 32 g/dL (31-36); Mean Corpuscular Hemoglobin 29 pg (27-31); Mean Corpuscular Volume 90 fL (80-97); Platelet Count 260 10^3/uL (150-450); Red Blood Count 2.85 10^6 /uL (3.70-4.87); Red Cell Distribution Width 17 % (10-15); White Blood Count 4.5 10^3/uL (3.5-10.8)
[2022-01-26 06:17] LABS: Calcium 7.3 mg/dL (8.6-10.3); Potassium 3.7 mmol/L (3.5-5.0)
[2022-01-26 06:22] LABS: ABS Basophils 0.1 10^3/ul (0-0.2); ABS Eosinophils 0.1 10^3/ul (0-0.6); ABS Neutrophils 1.2 10^3/ul (1.5-7.7); Lymphocyte % 45.4 %; Nucleated Red Blood Cells % 0.3
[2022-01-26 10:31] LABS: Urine Appearance Cloudy; Urine Bilirubin Negative (Negative); Urine Blood 1+ (Negative); Urine Color Yellow; Urine Glucose 1+(50 mg/dL) (Negative); Urine Ketones Negative (Negative); Urine Nitrite Negative (Negative); Urine Protein 3+(>=500 mg/dL) (Negative); Urine Urobilinogen Negative (Negative)
[2022-01-26 11:05] LABS: Urine Bacteria 1+ (Absent); Urine Red Blood Cell Trace(0-2/hpf) (Absent); Urine Squamous Epithelial Cell Present (Absent); Urine White Blood Cell 1+(6-10/hpf) (Absent)
[2022-01-26 15:39] LABS: Calcium 7.4 mg/dL (8.6-10.3); Potassium 3.9 mmol/L (3.5-5.0); eGFR CKD-EPI 23.3 (>60)
[2022-01-26] MEDS: Enoxaparin 30 MG/0.3 ML SYR SUBCUT SCH (17:18)
[2022-01-27 05:58] LABS: Hematocrit 25 % (35-47); Hemoglobin 8.1 g/dL (12.0-16.0); Mean Corpuscular HGB Conc 32 g/dL (31-36); Mean Corpuscular Hemoglobin 29 pg (27-31); Mean Corpuscular Volume 90 fL (80-97); Mean Platelet Volume 8.2 fL (7.4-10.4); Platelet Count 278 10^3/uL (150-450); Red Blood Count 2.77 10^6 /uL (3.70-4.87); Red Cell Distribution Width 17 % (10-15); White Blood Count 4.5 10^3/uL (3.5-10.8)
[2022-01-27 06:32] LABS: ABS Eosinophils 0.1 10^3/ul (0-0.6); ABS Monocytes 1.2 10^3/ul (0-0.8); ABS Neutrophils 1.2 10^3/ul (1.5-7.7); Eosinophil % 1.3 %; Lymphocyte % 44.5 %; Nucleated Red Blood Cells % 0.3
[2022-01-27 06:46] LABS: Calcium 7.2 mg/dL (8.6-10.3); Potassium 3.7 mmol/L (3.5-5.0); eGFR CKD-EPI 23.9 (>60)
[2022-01-27] MEDS: Enoxaparin 30 MG/0.3 ML SYR SUBCUT SCH (17:31)
[2022-01-28 06:39] LABS: Calcium 7.6 mg/dL (8.6-10.3); Potassium 3.6 mmol/L (3.5-5.0); eGFR CKD-EPI 22.6 (>60)
[2022-01-28 10:45] LABS: Ferritin 957.8 ng/mL (11-307)
[2022-01-28 17:10] LABS: Urine Creatinine Concentration 104.78 mg/dL
[2022-01-28] MEDS: Enoxaparin 30 MG/0.3 ML SYR SUBCUT SCH (17:42)
[2022-01-29] MEDS: Labetalol IV 5 MG/ML 20 ml VIAL IV PUSH PRN (06:16)
[2022-01-29 07:42] LABS: Hematocrit 25 % (35-47); Hemoglobin 8.6 g/dL (12.0-16.0); Mean Corpuscular HGB Conc 34 g/dL (31-36); Mean Corpuscular Hemoglobin 30 pg (27-31); Mean Corpuscular Volume 89 fL (80-97); Platelet Count 315 10^3/uL (150-450); Red Blood Count 2.83 10^6 /uL (3.70-4.87); Red Cell Distribution Width 16 % (10-15); White Blood Count 5.8 10^3/uL (3.5-10.8)
[2022-01-29 08:31] LABS: Albumin 2.1 g/dL (3.2-5.2); Albumin/Globulin Ratio 1.4 (1-3); Calcium 7.5 mg/dL (8.6-10.3); Globulin 1.5 g/dL (2-4); Magnesium 1.9 mg/dL (1.9-2.7); Potassium 3.6 mmol/L (3.5-5.0); Total Bilirubin 0.3 mg/dL (0.2-1.0); Total Protein 3.6 g/dL (6.4-8.9)
[2022-01-29 09:09] LABS: Tear Drop Cells 1+
[2022-01-29 09:13] LABS: ABS Basophils 0.1 10^3/ul (0-0.2); ABS Eosinophils 0.1 10^3/ul (0-0.6); ABS Lymphocytes 2.3 10^3/ul (1.0-4.8); ABS Monocytes 1.7 10^3/ul (0-0.8); ABS Neutrophils 1.6 10^3/ul (1.5-7.7); Eosinophil % 1.6 %; Lymphocyte % 40.7 %; Nucleated Red Blood Cells % 0.2
[2022-01-29] MEDS: Furosemide 40 mg/4 ml IV VIAL IV SLOW PU SCH (09:16)
[2022-01-29] MEDS: Enoxaparin 30 MG/0.3 ML SYR SUBCUT SCH (17:57)
[2022-01-29] MEDS: Amoxicillin/Clavul 500/125 TAB (Augmentin 500 mg tab) PO SCH ×2 (17:57→20:59)
[2022-01-30] MEDS: Amoxicillin/Clavul 500/125 TAB (Augmentin 500 mg tab) PO SCH ×2 (09:31→21:30)
[2022-01-30] MEDS: Furosemide 40 mg/4 ml IV VIAL IV SLOW PU SCH (09:34)
[2022-01-30 10:07] LABS: Hematocrit 29 % (35-47); Hemoglobin 9.4 g/dL (12.0-16.0); Mean Corpuscular HGB Conc 33 g/dL (31-36); Mean Corpuscular Hemoglobin 29 pg (27-31); Mean Corpuscular Volume 90 fL (80-97); Mean Platelet Volume 8.5 fL (7.4-10.4); Platelet Count 363 10^3/uL (150-450); Red Blood Count 3.18 10^6 /uL (3.70-4.87); Red Cell Distribution Width 17 % (10-15); White Blood Count 5.3 10^3/uL (3.5-10.8)
[2022-01-30 10:51] LABS: Albumin 2.5 g/dL (3.2-5.2); Albumin/Globulin Ratio 1.5 (1-3); Calcium 7.8 mg/dL (8.6-10.3); Globulin 1.7 g/dL (2-4); Potassium 4.4 mmol/L (3.5-5.0); Total Bilirubin 0.3 mg/dL (0.2-1.0); Total Protein 4.2 g/dL (6.4-8.9); eGFR CKD-EPI 24.6 (>60)
[2022-01-30] MEDS ORDERED: Furosemide 20 mg/2 ml IV VIAL IV SLOW PU ONE (11:46)
[2022-01-30 11:56] LABS: ABS Eosinophils 0.1 10^3/ul (0-0.6); ABS Monocytes 1.3 10^3/ul (0-0.8); ABS Neutrophils 1.8 10^3/ul (1.5-7.7); Eosinophil % 1.6 %; Lymphocyte % 38.4 %; Nucleated Red Blood Cells % 0.1
[2022-01-30] MEDS: Enoxaparin 30 MG/0.3 ML SYR SUBCUT SCH (17:28)
[2022-01-31 08:13] LABS: Hematocrit 25 % (35-47); Hemoglobin 8.1 g/dL (12.0-16.0); Mean Corpuscular HGB Conc 33 g/dL (31-36); Mean Corpuscular Hemoglobin 29 pg (27-31); Mean Corpuscular Volume 89 fL (80-97); Mean Platelet Volume 8.5 fL (7.4-10.4); Platelet Count 329 10^3/uL (150-450); Red Cell Distribution Width 17 % (10-15); White Blood Count 5.9 10^3/uL (3.5-10.8)
[2022-01-31 08:25] LABS: Albumin 2.3 g/dL (3.2-5.2); Calcium 7.8 mg/dL (8.6-10.3); Magnesium 1.9 mg/dL (1.9-2.7); Potassium 3.9 mmol/L (3.5-5.0); Total Bilirubin 0.3 mg/dL (0.2-1.0)
[2022-01-31 08:31] LABS: Albumin/Globulin Ratio 1.2 (1-3); Globulin 1.9 g/dL (2-4); Total Protein 4.2 g/dL (6.4-8.9); eGFR CKD-EPI 23.4 (>60)
[2022-01-31] MEDS ORDERED: Furosemide 40 mg/4 ml IV VIAL IV SLOW PU SCH (09:00)
[2022-01-31] MEDS: Amoxicillin/Clavul 500/125 TAB (Augmentin 500 mg tab) PO SCH (09:50)
[2022-01-31 10:22] LABS: ABS Basophils 0.1 10^3/ul (0-0.2); ABS Eosinophils 0.1 10^3/ul (0-0.6); ABS Lymphocytes 2.4 10^3/ul (1.0-4.8); ABS Monocytes 1.7 10^3/ul (0-0.8); ABS Neutrophils 1.6 10^3/ul (1.5-7.7); Eosinophil % 2.1 %; Lymphocyte % 41.8 %; Nucleated Red Blood Cells % 0.1
[2022-01-31 11:20] VITALS: BP 125/72
== END 2022-01-31 13:10 | disposition home or self-care (01) | DRG 683 ==
LOC: CHOA 14:40 → MED 14:40 → SUATTDRO 16:52
PROVIDERS: ADMIT Internal Medicine Hospice and Palliative Medicine; ATTEND Internal Medicine

== ENCOUNTER 2023-04-26 16:44 | Inpatient (IN) ==
[2023-04-26 17:55] LABS: ABS Lymphocytes 1.9 10^3/uL (1.0-4.8); ABS Neutrophils 9.8 10^3/uL (1.5-7.6); Hematocrit 29.7 % (35-45); Hemoglobin 9.5 g/dL (11.5-14.3); Lymphocyte % 14.7 %; Mean Corpuscular Hemoglobin 32.5 pg (27-33); Mean Corpuscular Hgb Conc 32.1 g/dL (31-36); Mean Corpuscular Volume 101.3 fL (80-97); Mean Platelet Volume 8.1 fL (7.5-11.2); Platelet Count 273 10^3/uL (150-450); Red Blood Count 2.94 10^6/uL (3.63-4.92); Red Cell Distribution Width 21.3 % (12-17); White Blood Count 12.6 10^3/uL (3.8-11.8)
[2023-04-26 18:14] LABS: Activated Partial Thrombo Time 21.1 seconds (26.0-38.0); INR 1.17 (0.83-1.13)
[2023-04-26 19:24] LABS: Albumin 3.2 g/dL (3.2-5.2); Calcium 8.3 mg/dL (8.6-10.3); Creatinine, Serum 1.54 mg/dL (0.51-0.95); Globulin 3.1 g/dL (2-4); Potassium 4.2 mmol/L (3.5-5.0); Total Bilirubin 0.5 mg/dL (0.2-1.0); Total Protein 6.3 g/dL (6.4-8.9); eGFR CKD-EPI 35.7 (>60)
[2023-04-26 21:03] LABS: Hemoglobin 8.8 g/dL (11.5-14.3)
[2023-04-26 23:56] LABS: Urine Appearance Turbid; Urine Bacteria 1+ /HPF (Absent); Urine Bilirubin Negative (Negative); Urine Blood 2+ (Negative); Urine Color Colorless; Urine Glucose 4+ (>=1000 mg/dL) (Negative); Urine Ketones Negative (Negative); Urine Nitrite Negative (Negative); Urine Protein Trace (Negative); Urine Red Blood Cell 3+(>10/hpf) /HPF (0-Trace); Urine Urobilinogen Negative (Negative); Urine White Blood Cell 3+(>20/hpf) /HPF (0-Trace)
[2023-04-27 06:27] LABS: ABS Eosinophils 0.1 10^3/uL (0.0-0.5); ABS Lymphocytes 2.8 10^3/uL (1.0-4.8); ABS Monocytes 1.3 10^3/uL (0.0-0.9); ABS Neutrophils 7.8 10^3/uL (1.5-7.6); Eosinophil % 0.6 %; Hemoglobin 8.8 g/dL (11.5-14.3); Lymphocyte % 23.1 %; Mean Corpuscular Hemoglobin 32.6 pg (27-33); Mean Corpuscular Hgb Conc 32.8 g/dL (31-36); Mean Corpuscular Volume 99.5 fL (80-97); Mean Platelet Volume 7.8 fL (7.5-11.2); Platelet Count 255 10^3/uL (150-450); Red Blood Count 2.71 10^6/uL (3.63-4.92); Red Cell Distribution Width 21.5 % (12-17)
[2023-04-27 06:57] LABS: Calcium 8.5 mg/dL (8.6-10.3); Creatinine, Serum 1.46 mg/dL (0.51-0.95)
[2023-04-27] MEDS: cefTRIAXone 1 gm/50 mL D5W 1 GM/50 ML BAG IV SCH (08:20)
[2023-04-27 09:49] LABS: Corrected Retic Count 1.3 % (0.5-1.5); Hematocrit for Retic CNT 28.9 % (35-45); Immature Retic Fraction 0.41; RBC Retic Count 2.87 10^6/ul (3.63-4.92)
[2023-04-27 10:44] LABS: Ferritin 175.6 ng/mL (11-307)
[2023-04-27] MEDS: Iodixanol (CONTRAST) 320 MG/ML 100 ML SDV IV ONE (10:50)
[2023-04-27] MEDS: Insulin GLARGINE 100 un/ml 10 ml VIAL SUBCUT SCH (11:00)
[2023-04-28 05:47] LABS: ABS Eosinophils 0.1 10^3/uL (0.0-0.5); ABS Monocytes 1.2 10^3/uL (0.0-0.9); ABS Neutrophils 6.5 10^3/uL (1.5-7.6); ABS Nucleated RBC 0.01 10^3/ul; Eosinophil % 0.7 %; Hematocrit 24.8 % (35-45); Hemoglobin 8.3 g/dL (11.5-14.3); Lymphocyte % 27.7 %; Mean Corpuscular Hemoglobin 33.4 pg (27-33); Mean Corpuscular Hgb Conc 33.3 g/dL (31-36); Mean Corpuscular Volume 100.1 fL (80-97); Mean Platelet Volume 7.9 fL (7.5-11.2); Nucleated Red Blood Cells % 0.1 %/100WBC (0.0-0.8); Platelet Count 244 10^3/uL (150-450); Red Blood Count 2.47 10^6/uL (3.63-4.92); Red Cell Distribution Width 21.6 % (12-17); White Blood Count 10.8 10^3/uL (3.8-11.8)
[2023-04-28 06:15] LABS: Calcium 8.3 mg/dL (8.6-10.3); Creatinine, Serum 1.46 mg/dL (0.51-0.95); Potassium 3.8 mmol/L (3.5-5.0)
[2023-04-28] MEDS: cefTRIAXone 1 gm/50 mL D5W 1 GM/50 ML BAG IV SCH (08:00)
[2023-04-28] MEDS ORDERED: Metoclopramide 5 MG/ML VIAL (10 mg) IV SLOW PU PRN (12:38)
[2023-04-28] MEDS: Iron Sucrose 200 MG in NS 0.9% 100 ml BAG 100 ML IVPB SCH (14:22)
[2023-04-29 07:24] LABS: ABS Eosinophils 0.1 10^3/uL (0.0-0.5); ABS Lymphocytes 2.4 10^3/uL (1.0-4.8); ABS Monocytes 1.2 10^3/uL (0.0-0.9); ABS Neutrophils 6.7 10^3/uL (1.5-7.6); ABS Nucleated RBC 0.01 10^3/ul; Eosinophil % 0.9 %; Hematocrit 25.8 % (35-45); Hemoglobin 8.3 g/dL (11.5-14.3); Lymphocyte % 22.8 %; Mean Corpuscular Hemoglobin 32.4 pg (27-33); Mean Corpuscular Hgb Conc 32.3 g/dL (31-36); Mean Corpuscular Volume 100.4 fL (80-97); Mean Platelet Volume 7.9 fL (7.5-11.2); Nucleated Red Blood Cells % 0.1 %/100WBC (0.0-0.8); Platelet Count 261 10^3/uL (150-450); Red Blood Count 2.57 10^6/uL (3.63-4.92); White Blood Count 10.4 10^3/uL (3.8-11.8)
[2023-04-29 07:47] LABS: Calcium 8.5 mg/dL (8.6-10.3); Creatinine, Serum 1.44 mg/dL (0.51-0.95); Potassium 3.3 mmol/L (3.5-5.0); eGFR CKD-EPI 38.6 (>60)
[2023-04-29] MEDS: Potassium Chlor 20 meq TAB.ER PO ONE (15:04)
[2023-04-29] MEDS: Calcium Carb (TUMS) 500 mg CHEW TAB PO PRN (21:00)
[2023-04-30 05:20] LABS: ABS Eosinophils 0.2 10^3/uL (0.0-0.5); ABS Lymphocytes 2.1 10^3/uL (1.0-4.8); ABS Monocytes 1.1 10^3/uL (0.0-0.9); ABS Neutrophils 6.1 10^3/uL (1.5-7.6); ABS Nucleated RBC 0.03 10^3/ul; Eosinophil % 1.6 %; Hematocrit 24.6 % (35-45); Lymphocyte % 22.2 %; Mean Corpuscular Hemoglobin 33.1 pg (27-33); Mean Corpuscular Hgb Conc 32.6 g/dL (31-36); Mean Corpuscular Volume 101.7 fL (80-97); Mean Platelet Volume 7.6 fL (7.5-11.2); Nucleated Red Blood Cells % 0.3 %/100WBC (0.0-0.8); Platelet Count 273 10^3/uL (150-450); Red Blood Count 2.42 10^6/uL (3.63-4.92); Red Cell Distribution Width 22.4 % (12-17); White Blood Count 9.5 10^3/uL (3.8-11.8)
[2023-04-30 06:09] LABS: Calcium 8.2 mg/dL (8.6-10.3); Creatinine, Serum 1.28 mg/dL (0.51-0.95); Potassium 3.6 mmol/L (3.5-5.0); eGFR CKD-EPI 44.5 (>60)
[2023-05-01 22:53] LABS: ABS Eosinophils 0.1 10^3/uL (0.0-0.5); ABS Lymphocytes 1.5 10^3/uL (1.0-4.8); ABS Monocytes 0.8 10^3/uL (0.0-0.9); ABS Neutrophils 5.7 10^3/uL (1.5-7.6); ABS Nucleated RBC 0.01 10^3/ul; Eosinophil % 1.5 %; Hematocrit 24.4 % (35-45); Lymphocyte % 18.6 %; Mean Corpuscular Hemoglobin 33.4 pg (27-33); Mean Corpuscular Hgb Conc 32.7 g/dL (31-36); Mean Corpuscular Volume 102.1 fL (80-97); Mean Platelet Volume 7.6 fL (7.5-11.2); Nucleated Red Blood Cells % 0.2 %/100WBC (0.0-0.8); Platelet Count 283 10^3/uL (150-450); Red Blood Count 2.39 10^6/uL (3.63-4.92); Red Cell Distribution Width 22.6 % (12-17); White Blood Count 8.2 10^3/uL (3.8-11.8)
[2023-05-03 05:56] LABS: ABS Eosinophils 0.1 10^3/uL (0.0-0.5); ABS Lymphocytes 1.7 10^3/uL (1.0-4.8); ABS Monocytes 0.9 10^3/uL (0.0-0.9); ABS Nucleated RBC 0.02 10^3/ul; Eosinophil % 1.2 %; Hematocrit 24.3 % (35-45); Hemoglobin 7.9 g/dL (11.5-14.3); Lymphocyte % 21.9 %; Mean Corpuscular Hemoglobin 33.5 pg (27-33); Mean Corpuscular Hgb Conc 32.7 g/dL (31-36); Mean Corpuscular Volume 102.6 fL (80-97); Mean Platelet Volume 7.3 fL (7.5-11.2); Nucleated Red Blood Cells % 0.2 %/100WBC (0.0-0.8); Platelet Count 273 10^3/uL (150-450); Red Blood Count 2.37 10^6/uL (3.63-4.92); Red Cell Distribution Width 22.7 % (12-17); White Blood Count 7.8 10^3/uL (3.8-11.8)
[2023-05-03 06:37] LABS: Calcium 7.8 mg/dL (8.6-10.3); Creatinine, Serum 1.29 mg/dL (0.51-0.95); Magnesium 1.9 mg/dL (1.9-2.7); Potassium 3.3 mmol/L (3.5-5.0); eGFR CKD-EPI 44.1 (>60)
[2023-05-03] MEDS: Potassium Chlor 20 meq TAB.ER PO ONE (10:02)
[2023-05-04 14:15] VITALS: BP 117/54
== END 2023-05-04 15:46 | disposition home or self-care (01) | DRG 755 ==
LOC: EDHOLD 16:44 → ED 16:44 → SUATTDRO 04-27 03:29 → MED 04-27 08:10 → SUATTDRO 04-29 11:15
PROVIDERS: ADMIT Internal Medicine; ATTEND Hospitalist